=== PATIENT | female | born 1980 | race Caucasian/White ===

== ENCOUNTER 2017-05-30 18:33 | Emergency (ER) | payer OTHER ==
[~2017-05-30] VITALS: Ht 167.6 cm; Wt 80.1 kg
[~2017-05-30 18:33] MED LIST: ANAPROX275 MG PO; CHANTIX1 MG PO; CIPRO500 MG PO; LEVOTHYROXINE75 MCG PO; LO LOESTRIN FE1 EACH PO; LORTAB 5-500 T1 EAC1 PO; LYRICA300 MG PO; Lyrica PO; NABUMETONE750 MG PO; NAPROSYN500 MG PO; NAPROXEN500 MG PO; NOHOMEMEDS; PANTOPRAZOLE SO40 MG PO; PERCOCET 5/31 TABLET PO; PONSTEL250 MG PO; PYRIDIUM100 MG PO; Protonix PO; SYNTHROID150 MCG PO; SYNTHROID200 MCG PO; Tylenol/Codeine #3 PO; VICODIN 5-3001 EACH PO; ZANAFLEX4 M1 PO; ZANAFLEX4 MG PO
[2017-05-30] MEDS ORDERED: LORAZEPAM0.5 MG PO (19:52)
[2017-05-30] MEDS ORDERED: NORCO 5/3251 TABLET PO (19:56)
[2017-05-30] MEDS ORDERED: NAPROXEN500 MG PO (19:56)
[2017-05-30 20:13] VITALS: BP 136/74
== END 2017-05-30 20:13 | disposition home or self-care (01) ==
LOC: EME 18:33
DX: S20.219A Contusion of unspecified front wall of thorax, initial encounter (principal); Y04.8XXA Assault by other bodily force, initial encounter; K21.9 Gastro-esophageal reflux disease without esophagitis; F41.9 Anxiety disorder, unspecified; E03.9 Hypothyroidism, unspecified; F32.9 Major depressive disorder, single episode, unspecified; F17.200 Nicotine dependence, unspecified, uncomplicated; Z98.51 Tubal ligation status
CPT/HCPCS: 71046; 99281; 99284

== ENCOUNTER 2017-10-17 10:12 | Emergency (ER) | payer OTHER ==
[~2017-10-17] VITALS: Ht 167.6 cm; Wt 78.7 kg
[~2017-10-17 10:12] MED LIST changes: +LORAZEPAM0.5 MG PO; +NORCO 5/3251 TABLET PO
[2017-10-17 12:03] LABS: BASOPHIL (%) 1.2 % (0-1); BASOPHIL COUNT 0.1 K/uL (0-0.1); EOSINOPHIL (%) 0.6 % (0-5); EOSINOPHIL COUNT 0.1 K/uL (0-0.3); HEMATOCRIT 45.7 % (36.0-46.0); HEMOGLOBIN 16.1 G/DL (11.9-15.5); IMMATURE GRANULOCYTE (%) 0.5 % (0.0-0.7); LYMPHOCYTE (%) 21.2 % (15-42); LYMPHOCYTE COUNT 2.1 K/uL (1.0-2.8); MCH 30.2 PG (29.0-34.0); MCHC 35.2 G/DL (30.0-36.0); MCV 85.7 FL (83-99); MONOCYTE (%) 4.5 % (3-12); MONOCYTE COUNT 0.5 K/uL (0-0.8); NEUTROPHIL COUNT 7.2 K/uL (1.8-6.4); PLATELET COUNT 410 K/uL (156-360); RBC DIS.WIDTH-CV 13.2 % (11.8-14.6); RBC DIS.WIDTH-SD 40.5 % (39-53); RED BLOOD COUNT 5.33 M/uL (3.80-5.20); WHITE BLOOD COUNT 10.1 K/uL (4.1-10.2)
[2017-10-17 12:05] LABS: APPEARANCE CLOUDY ((CLEAR)); BILIRUBIN NEGATIVE; BLOOD NEGATIVE; COLOR YELLOW ((YELLOW)); GLUCOSE (STRIP) NEGATIVE; KETONES 5; LEUKOCYTES NEGATIVE; NITRITE NEGATIVE; PROTEIN (STRIP) NEGATIVE; SPECIFIC GRAVITY 1.012 (1.000-1.030); UROBILINOGEN 0.2 MG/DL (0.2-1.0)
[2017-10-17 12:10] LABS: BACTERIA 1+ /HPF; CALCIUM OXALATE CRYSTALS 2+ /HPF; EPITHELIAL CELLS 2+ /HPF; MUCUS 1+ /LPF; RED BLOOD CELLS 0-5 /HPF (0-5); UCUL ADDED? NO; WHITE BLOOD CELLS 0-5 /HPF (0-5)
[2017-10-17 12:33] LABS: ALBUMIN 4.2 G/DL (3.2-4.8); ALKALINE PHOSPHATASE 76 IU/L (3-129); ALT (GPT) 9 IU/L (3-49); AST (GOT) 15 IU/L (2-34); CHLORIDE 99 MEQ/L (99-109); GFR ESTIMATE (CALCULATED) > 59 mL/min/; GLUCOSE 84 mg/dL (70-99); POTASSIUM 2.9 MEQ/L (3.7-5.4); SODIUM 138 MEQ/L (136-147); TOTAL BILIRUBIN 1.1 MG/DL (0.0-1.0); TOTAL PROTEIN 7.7 G/DL (6.4-8.3); UREA NITROGEN (BUN) 10 mg/dL (9-23)
[2017-10-17 13:38] LABS: LIPASE 18 U/L (1.0-51.0)
[2017-10-17] MEDS ORDERED: ZOFRAN4 MG PO (14:34)
[2017-10-17 15:41] VITALS: BP 158/108
== END 2017-10-17 15:41 | disposition home or self-care (01) ==
LOC: EME 10:12
PROVIDERS: Emergency Medicine
DX: K29.70 Gastritis, unspecified, without bleeding (principal); K21.9 Gastro-esophageal reflux disease without esophagitis; E03.9 Hypothyroidism, unspecified; F41.9 Anxiety disorder, unspecified; F32.9 Major depressive disorder, single episode, unspecified; F17.200 Nicotine dependence, unspecified, uncomplicated; Z90.711 Acquired absence of uterus with remaining cervical stump
CPT/HCPCS: 74176; 80053; 81003; 83690; 85025; 93005; 99281; 99285; C9113; J1885; J2405; J3010; J7030